=== PATIENT | male | born 1995 | race Caucasian/White ===

== ENCOUNTER 2022-11-14 23:10 | Emergency (ER) | payer OTHER ==
[~2022-11-14] VITALS: Ht 180.3 cm; Wt 94.3 kg
[2022-11-14 23:20] VITALS: BP 135/84
--- NOTE | 2022-11-14 23:23 | NUR ---
TO LOBBY A/W BED AMBULATORY
[2022-11-15] MEDS ORDERED: KETOROLAC 30 MG/ML VIAL IM ONE (02:25)
--- NOTE | 2022-11-15 02:47 | NUR ---
WENT TO XRAY.
--- NOTE | 2022-11-15 02:51 | NUR ---
PATIENT BACK FROM XRAY
[2022-11-15] MEDS ORDERED: NAPR-54 PO (03:05)
[2022-11-15 03:31] VITALS: BP 135/84
--- NOTE | 2022-11-15 03:33 | NUR ---
Patient discharged with v/s stable. Written and verbal after care instructions given and explained. Patient verbalized understanding. Ambulatory with steady gait. All questions addressed prior to discharge. Advised to follow up with PMD. PT LEFT WITH HIS BELONGINGS.
== END 2022-11-15 03:31 | disposition home or self-care (01) ==
LOC: MED 23:10
DX: S52.135A Nondisplaced fracture of neck of left radius, initial encounter for closed fracture (principal); S63.502A Unspecified sprain of left wrist, initial encounter; S90.31XA Contusion of right foot, initial encounter; S50.02XA Contusion of left elbow, initial encounter; Z79.1 Long term (current) use of non-steroidal anti-inflammatories (NSAID); W18.39XA Other fall on same level, initial encounter; Y92.89 Other specified places as the place of occurrence of the external cause; Y93.89 Activity, other specified; Y99.8 Other external cause status
CPT/HCPCS: 29105; 73080; 73110; 73630; 96372; 99284; J1885